=== PATIENT | female | born 1990 | race American Indian/Alaskan Native ===

== ENCOUNTER 2017-01-24 15:54 | Emergency (ER) | payer MEDICAID ==
[2017-01-24 16:00] VITALS: BMI 30.8
[2017-01-24 16:45] LABS: RBC URINE 15 /hpf (0-3); URINE BACTERIA RARE (<OCC); URINE BILIRUBIN NEGATIVE (NEGATIVE); URINE BLOOD SMALL (NEGATIVE); URINE COLOR YELLOW (YELLOW); URINE GLUCOSE (UA) NEG (Normal); URINE KETONE NEGATIVE (NEGATIVE); URINE LEUKOCYTE ESTERASE TRACE Leu/uL (Negative); URINE PROTEIN NEGATIVE (NEGATIVE); WBC URINE 12 /hpf (0-5)
[2017-01-24] MEDS ORDERED: Betamethasone Soluspan 30 mg/5mL Inj Susp IM ONE (18:00)
--- NOTE | 2017-01-24 18:51 | OBDCSUM ---
Datetime: 01/24/2017 17:21 Discharged to, Provider: Home Follow up at, Provider: Dr June Disch Instr Activity: Bedrest Disch Instr Diet: Regular Discharge Diet restrict Prov: complete bed rest Discharge Instructions, Provider: Routine instructions given Discharge Diagnosis, Provider: False Labor - Undelivered Discharge Time: 01/24/2017 18:21 Follow up in weeks, Provider: as scheduled Disch Referrals: None Contraception discussed, Prov: No Disch Activity Restrictions: No exercising; No lifting; No driving; Minimize walking; Minimize stair -climbing; No sexual activity; Nothing in vagina - [place], tampons, douche Discharge Comment, Provider: Report given that UA neg; FFN neg; given Betamethoasone as per Dr Jennifer russell
--- NOTE | 2017-01-24 18:51 | OBHP ---
Datetime: 01/24/2017 16:06 IP Adm Impression: , intrauterine IP Chief Complaint Other: pelvic pressure x 1 day IP Admit Plan: Observation/Evaluation Admit Comment, IP Provider: 26 y/o at 30.4 dated by LMP, confirmed by US, presenting for int ermittent generalized pelvic pressure x 1 week. Went to OB office today, Dr June, FFN taken, 2cm dilated and sent to [facility]. Patient denies ctx, VB, LOF. +FM, unremarkable PNC, 2 yeast infections in current . PNC: Dr June, AB pos, antibody screen negative, HepB, HIV neg, rpr NR, rubella immune PMH: denies PSH: D_E Meds: pnv Allergies: NKDA O: cat. 1 tracing A/P cont monitoring FFN UA d/w Dr Carlos Guy MD OB Hospitalist oncall...I saw and examined this patient with PGY1...SSe done by Dr June in of fice and exam above is his verbal report MAHNDO Pelvic Type - PN: Adequate Extremities - PN: Normal Abdomen - PN: Normal Back - PN: Normal Breast - PN: Not Done Lungs - PN: Normal Heart - PN: Normal Thyroid - PN: Normal Neurologic - PN: Normal HEENT - PN: Normal General - PN: Normal Membranes, Provider: Intact Comments, ACOG Physical Exam: ROS Geneeral: no weakness HEENT: NO VÁSQUEZ; no visual dist RESP: no SOB; no Cough CV: no CP; no palpitations GI: No N/V/D : No F/U/ D MS: no joint pain Gestation - Est Wks by US: 30.4 Pool Provider: Negative IP Hx Assessment: The History has been Reviewed and is Current EGA AdmitDate IP: 30.4 IP Chief Complaint: Other FHR Category Provider Fetus A: Category I NICHD Decel Fetus A IP Provider: None Dilatation, Provider: 2 Genitourinary Exam: Normal DTRs - PN: Normal
== END 2017-01-24 18:25 | disposition home or self-care (01) ==
LOC: H.EROB2 15:54
DX: O47.03 False labor before 37 completed weeks of gestation, third trimester (principal); Z3A.30 30 weeks gestation of pregnancy
CPT/HCPCS: 81003; 96372; 99283; J0702

== ENCOUNTER 2017-01-25 17:21 | Emergency (ER) | payer MEDICAID ==
[2017-01-25] MEDS ORDERED: Betamethasone Soluspan 30 mg/5mL Inj Susp IM ONE (17:31)
--- NOTE | 2017-01-25 18:03 | OBHP ---
Datetime: 01/25/2017 17:59 IP Adm Impression: , intrauterine Admit Comment, IP Provider: 26 y/o at 30.4 weeks. Patient presents to labor and delivery for steroid administration. Patient received her first course of steroids on 01/24/2017. Patient denies any vaginal bleeding contractions or leakage of fluid she reports good movement PNC: Dr June, AB pos, antibody screen negative, HepB, HIV neg, rpr NR, rubella immune PMH: denies PSH: D_E Meds: pnv Allergies: NKDA O: cat. 1 tracing A/P Intrauterine at 33 weeks Patient to receive steroids Follow-up with [facility] in 1 week labor precautions provided Pelvic Type - PN: Adequate Extremities - PN: Normal Abdomen - PN: Normal Back - PN: Normal Breast - PN: Not Done Lungs - PN: Normal Heart - PN: Normal Thyroid - PN: Normal Neurologic - PN: Normal HEENT - PN: Normal General - PN: Normal Vital Signs Provider: Reviewed NICHD Decel Fetus A IP Provider: None Genitourinary Exam: Not Done DTRs - PN: Normal Datetime: 01/24/2017 16:06 EGA AdmitDate IP: 30.4
[2017-01-26 17:27] VITALS: BP 110/74; PULSE 103; RESP 16; TEMP 98.1
== END 2017-01-25 18:29 | disposition home or self-care (01) ==
LOC: H.EROB2 17:21
DX: O47.03 False labor before 37 completed weeks of gestation, third trimester (principal); Z3A.33 33 weeks gestation of pregnancy; Z23 Encounter for immunization
CPT/HCPCS: 96372; 99281; J0702

== ENCOUNTER 2017-01-27 14:10 | Emergency (ER) | payer MEDICAID ==
[2017-01-27 15:43] VITALS: BMI 31.3
--- NOTE | 2017-01-27 15:47 | OBHP ---
Datetime: 01/27/2017 15:30 IP Adm Impression: , intrauterine ; No Active Labor; Intact Membranes IP Admit Plan: Observation/Evaluation Admit Comment, IP Provider: 26 y/o at 30+w c/o back pain since this morning. She did not ta ke meds. She was seen earlier this week because she was checked at Dr June's office and told 2c m. She was given Betamethasone on and Mon. She was seen yesterday at the office and given Difl ucan for yeast infection. PNC: Dr June, AB pos, antibody screen negative, HepB, HIV neg, rpr NR, rubella immune PMH: denies PSH: D_E Meds: pnv Allergies: NKDA O: cat. 1 tracing A/P cont monitoring FFN UA Pelvic Type - PN: Adequate Extremities - PN: Normal Abdomen - PN: Normal Back - PN: Normal Breast - PN: Not Done Lungs - PN: Normal Heart - PN: Normal Thyroid - PN: Normal Neurologic - PN: Normal HEENT - PN: Normal General - PN: Normal Membranes, Provider: Intact Comments, ACOG Physical Exam: SSE: closed ROS Geneeral: no weakness HEENT: NO VÁSQUEZ; no visual dist RESP: no SOB; no Cough CV: no CP; no palpitations GI: No N/V/D : No F/U/ D MS: no joint pain Pool Provider: Negative IP Hx Assessment: The History has been Reviewed and is Current EGA AdmitDate IP: 31.0 IP Chief Complaint: Other NICHD Decel Fetus A IP Provider: None Dilatation, Provider: 0 Genitourinary Exam: Normal DTRs - PN: Normal
[2017-01-27 16:52] LABS: RBC URINE 3 /hpf (0-3); URINE BACTERIA RARE (<OCC); URINE BILIRUBIN NEGATIVE (NEGATIVE); URINE BLOOD NEGATIVE (NEGATIVE); URINE COLOR YELLOW (YELLOW); URINE GLUCOSE (UA) NEG (Normal); URINE KETONE NEGATIVE (NEGATIVE); URINE LEUKOCYTE ESTERASE MOD Leu/uL (Negative); URINE PROTEIN NEGATIVE (NEGATIVE)
[2017-01-27 17:17] LABS: WBC URINE 30 /hpf (0-5)
--- NOTE | 2017-01-27 17:24 | OBDCSUM ---
Datetime: 01/27/2017 17:22 Discharged to, Provider: Home Follow up at, Provider: Dr June Disch Instr Activity: Normal activity Disch Instr Diet: Regular Discharge Instructions, Provider: Routine instructions given Follow up in weeks, Provider: 1-2w Disch Referrals: None Contraception discussed, Prov: Yes Disch Activity Restrictions: No sexual activity; Nothing in vagina - [place], tampons, douche Discharge Diagnosis Prov Other: UTI
--- NOTE | 2017-01-27 17:24 | OBHP ---
Datetime: 01/27/2017 17:21 Admit Comment, IP Provider: UA + Leuko esterase +WBC: will order urine culture and give Cephalexin 5 00mg TID for 7d...case discussed with Dr June Datetime: 01/27/2017 15:30 EGA AdmitDate IP: 31.0
[2017-01-27 22:00] VITALS: BP 111/74; PULSE 87; RESP 16; TEMP 97
== END 2017-01-27 17:35 | disposition home or self-care (01) ==
LOC: H.EROB2 14:10
DX: O47.03 False labor before 37 completed weeks of gestation, third trimester (principal); Z3A.30 30 weeks gestation of pregnancy

== ENCOUNTER 2017-03-23 02:39 | Inpatient (IN) | payer MEDICAID ==
[2017-03-23] MEDS: Lactated Ringer's 1,000 ML IV SCH ×5 (03:30→21:45)
[2017-03-23 04:03] LABS: BASO % 0.2 % (0.0-2.0); EOS # 0.1 K/uL (0.0-0.7); EOS % 0.6 % (0.0-4.0); HEMATOCRIT 34.9 % (34.0-47.0); LYMPH # 2.7 K/uL (1.0-4.3); LYMPH % 22.4 % (20.0-40.0); MEAN CELL VOLUME 78.9 fl (81.0-99.0); MEAN CORPUSCULAR HEMOGLOBIN 26.3 pg (27.0-31.0); MEAN CORPUSCULAR HGB CONC 33.3 g/dL (33.0-37.0); MEAN PLATELET VOLUME 10.8 fl (7.2-11.7); MONO # 0.9 K/uL (0.0-0.8); MONO % 7.1 % (0.0-10.0); NEUT # 8.5 K/uL (1.8-7.0); NEUT % 69.7 % (50.0-75.0); RED CELL DISTRIBUTION WIDTH 15.7 % (11.5-14.5); WHITE BLOOD COUNT 12.1 K/uL (4.8-10.8)
[2017-03-23] MEDS ORDERED: Fentanyl/Bupivacaine HCl 250 ML EPI ONE (04:24)
[2017-03-23 05:00] VITALS: O2SAT 100
--- NOTE | 2017-03-23 06:59 | OBHP ---
Datetime: 03/23/2017 06:56 IP Adm Impression: Term, intrauterine ; Active labor IP Admit Plan: Admit to unit Admit Comment, IP Provider: Paced at presents to labor and delivery complaining of spontaneous rupture membranes at 38 weeks 6 days patient reports good movement no vaginal bleeding and occ asional uterine contractions. Past medical history none Past surgical history none No known drug allergies Social history denies alcohol tobacco use Intrauterine at 38 weeks 6 days spontaneous rupture of membranes Admitted at IV fluid hydration routine labs external monitor Adequate pelvis vertex presentation anticipate normal vaginal delivery Pelvic Type - PN: Adequate Extremities - PN: Normal Abdomen - PN: Normal Back - PN: Normal Breast - PN: Not Done Lungs - PN: Normal Heart - PN: Normal Thyroid - PN: Normal Neurologic - PN: Normal HEENT - PN: Normal General - PN: Normal Presentation-Admit: Vertex FHR - Baseline A Provider: 145 Gestation - Est Wks by US: 38.0 EGA AdmitDate IP: 38.6 Vital Signs Provider: Reviewed IP Chief Complaint: Uterine contractions; Suspected ruptured membranes NICHD Variability Prov Fetus A: Moderate 6-25bpm NICHD Accel Fetus A IP Provider: [id number] FHR Category Provider Fetus A: Category I NICHD Decel Fetus A IP Provider: None Genitourinary Exam: Normal DTRs - PN: Normal
--- NOTE | 2017-03-23 09:04 | OBADHP ---
Datetime: 03/23/2017 06:56 Admit Comment, IP Provider: Paced at presents to labor and delivery complaining of spontaneous rupture membranes at 38 weeks 6 days patient reports good movement no vaginal bleeding and occ asional uterine contractions. Past medical history none Past surgical history none No known drug allergies Social history denies alcohol tobacco use Intrauterine at 38 weeks 6 days spontaneous rupture of membranes Admitted at IV fluid hydration routine labs external monitor Adequate pelvis vertex presentation anticipate normal vaginal delivery Pelvic Type - PN: Adequate Extremities - PN: Normal Abdomen - PN: Normal Back - PN: Normal Breast - PN: Normal Lungs - PN: Normal Heart - PN: Normal Thyroid - PN: Normal Neurologic - PN: Normal HEENT - PN: Normal General - PN: Normal Presentation-Admit: Vertex FHR - Baseline A Provider: 145 Amniotic Fluid Color, Provider: Clear Membranes, Provider: Ruptured Contraction Comments Provider: q3min Gestation - Est Wks by US: 38.0 Vital Signs Provider: Reviewed IP Chief Complaint: Uterine contractions; Suspected ruptured membranes NICHD Variability Prov Fetus A: Moderate 6-25bpm NICHD Accel Fetus A IP Provider: [id number] FHR Category Provider Fetus A: Category I NICHD Decel Fetus A IP Provider: None Dilatation, Provider: 2 Effacement, Provider: 75 Station, Provider: -1 Genitourinary Exam: Normal DTRs - PN: Normal EGA AdmitDate IP: 38.6 IP Adm Impression: Term, intrauterine ; Active labor IP Admit Plan: Admit to unit; Initiate labor augmentation protocol Datetime: 01/27/2017 15:30 Comments, ACOG Physical Exam: SSE: closed ROS Geneeral: no weakness HEENT: NO VÁSQUEZ; no visual dist RESP: no SOB; no Cough CV: no CP; no palpitations GI: No N/V/D : No F/U/ D MS: no joint pain Pool Provider: Negative IP Hx Assessment: The History has been Reviewed and is Current Datetime: 01/24/2017 16:06 IP Chief Complaint Other: pelvic pressure x 1 day
[2017-03-23] MEDS ORDERED: Oxytocin 30 UNITS in Sodium Chloride 0.9% 500 ML IV ONE ×2 (10:41→11:00)
--- NOTE | 2017-03-23 12:46 | OBDS ---
DELIVERY PERSONNEL Delivery Doctor: Nicola June MD Bun Icer: JasmineRatna MATERNAL INFORMATION Delivery Anesthesia: Local; Epidural Medications in Delivery: Pitocin 30 units Estimated Blood Loss (ml): 250ml Placenta Cultured: No Maternal Complications: None Provider Comments: delivery of live baby girl 9/9 clear fluid nuchal cordx2 small periurethral tear and repair with 2-0 chromic LABOR SUMMARY EDC: 03/31/2017 00:00 No. Babies in Womb: 1 Attempted: No LABOR INFORMATION Reason for Induction: Not Applicable Onset of Labor: 03/23/2017 02:00 Complete Dilatation: 03/23/2017 10:56 Group B Beta Strep: Negative Steroids Given: None Reason Steroids Not Administered: Not Applicable MEMBRANES Membranes Rupture Method: Spontaneous Rupture of Membranes: 03/23/2017 02:00 Amniotic Fluid Color: Clear Amniotic Fluid Amount: Small Amniotic Fluid Odor: Normal STAGES OF LABOR Stage 1 hrs: 8 Stage 1 min: 56 VAGINAL DELIVERY Episiotomy: None Laceration Extension: N/A Laceration Type: Periurethral Laceration Repair Note: repair of periurethral tear with 2-0 chromic Sponge Count Correct: Yes Sharps Count Correct: Yes Count Comment: correct IDENTIFICATION/MEDS BABY A ID Band Number: [id number]
[2017-03-23] MEDS ORDERED: Oxycodone/Acetaminophen 5/325 mg Tab PO PRN (12:50)
[2017-03-23] MEDS ORDERED: Benzocaine/Menthol SPRAY TOP PRN (12:50)
[2017-03-23] MEDS: Oxycodone/Acetaminophen 5/325 mg Tab PO PRN ×2 (14:32→20:13)
[2017-03-24 07:06] LABS: HEMATOCRIT 28.5 % (34.0-47.0); MEAN CELL VOLUME 80.7 fl (81.0-99.0); MEAN CORPUSCULAR HEMOGLOBIN 25.9 pg (27.0-31.0); MEAN CORPUSCULAR HGB CONC 32.1 g/dL (33.0-37.0); RED CELL DISTRIBUTION WIDTH 15.3 % (11.5-14.5); WHITE BLOOD COUNT 15.1 K/uL (4.8-10.8)
--- NOTE | 2017-03-24 08:14 | OBPPN ---
Datetime: 03/24/2017 08:09 PP Pain Prov: Within normal limits PP Nausea Prov: Denies PP Flatus Prov: Yes PP BM Prov: No PP Breasts Prov: Normal PP Heart Prov: Normal PP Lungs Prov: Normal PP Abdomen/Uterus Prov: Normal PP Lochia Prov: Normal PP Vulva/Perineum Prov: Normal PP CVA Tenderness Prov: Normal PP Extremities Prov: Normal PP Progress Prov: Normal PP Impression Prov: Normal progression PP Plan Prov: Continue present management PP Progress Note Prov: stable ppd1 continue present care IP PP Procedures: None Vital Signs Provider PP: Reviewed; Within Normal Limits
--- NOTE | 2017-03-25 10:21 | OBPPN ---
Datetime: 03/25/2017 10:17 PP Pain Prov: Within normal limits PP Nausea Prov: Denies PP Flatus Prov: Yes PP BM Prov: No PP Breasts Prov: Normal PP Heart Prov: Normal PP Lungs Prov: Normal PP Abdomen/Uterus Prov: Normal PP Lochia Prov: Normal PP Vulva/Perineum Prov: Normal PP CVA Tenderness Prov: Normal PP Extremities Prov: Normal PP Progress Prov: Normal PP Impression Prov: Normal progression PP Plan Prov: Continue present management PP Progress Note Prov: stable ppd2 ,dc home today IP PP Procedures: None Vital Signs Provider PP: Reviewed; Within Normal Limits
--- NOTE | 2017-03-25 10:21 | OBDCSUM ---
Datetime: 03/25/2017 10:19 Discharged to, Provider: Home Follow up at, Provider: [place] Disch Instr Activity: Bedrest; May be up to bathroom; May be up for meals; May Shower Disch Instr Diet: Regular Discharge Instructions, Provider: Routine instructions given Discharge Diagnosis, Provider: Term Delivered Discharge Time: 03/25/2017 10:19 Follow up in weeks, Provider: 5-6 weeks in office Disch Referrals: None Disch Activity Restrictions: No exercising; No lifting; No driving; Minimize walking; Minimize stair -climbing; No sexual activity; Nothing in vagina - [place], tampons, douche Contraception after Delivery: Undecided
[2017-03-25 19:31] VITALS: BP 126/71; PULSE 90; RESP 20; TEMP 97.9
== END 2017-03-25 13:13 | disposition home or self-care (01) | DRG 373 ==
LOC: H.EROB2 02:39 → H.L&D 03:17 → H.OB/GYN 17:05
PROVIDERS: ADMIT Specialist; ATTEND Specialist
PROC: 10E0XZZ Delivery of Products of Conception, External Approach (ICD-10-PCS; principal; 2017-03-23)
PROC: 0UQMXZZ Repair Vulva, External Approach (ICD-10-PCS; 2017-03-23)
PROC: 4A1HXCZ Monitoring of Products of Conception, Cardiac Rate, External Approach (ICD-10-PCS; 2017-03-23)
DX: O69.81X0 Labor and delivery complicated by cord around neck, without compression, not applicable or unspecified (principal); O71.82 Other specified trauma to perineum and vulva; Z37.0 Single live birth; Z3A.38 38 weeks gestation of pregnancy